=== PATIENT | female | born 1985 | race African-American/Black ===

== ENCOUNTER 2024-11-27 17:45 | Emergency (ER) | payer MEDICAID ==
[~2024-11-27] VITALS: Ht 154.9 cm; Wt 111.6 kg
[2024-11-27 18:12] VITALS: BP 146/92; TEMP 98.3; O2SAT 98
[2024-11-27] MEDS: ACETAMINOPHEN 325 MG TABLET PO ONE (19:02)
== END 2024-11-27 19:53 | disposition left against medical advice (07) ==
LOC: ER 18:00
DX: R05.9 Cough, unspecified (principal); R09.81 Nasal congestion; I10 Essential (primary) hypertension; E11.9 Type 2 diabetes mellitus without complications; F17.200 Nicotine dependence, unspecified, uncomplicated; Z53.29 Procedure and treatment not carried out because of patient's decision for other reasons
CPT/HCPCS: 71045-TC